=== PATIENT | female | born 1990 | race Caucasian/White ===

== ENCOUNTER 2022-10-04 08:14 | Emergency (ER) | payer OTHER, SELFPAY ==
[2022-10-04 08:23] VITALS: BP 133/74; PULSE 81; RESP 16; TEMP 36.7; O2SAT 98; BMI 22.5
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
[2022-10-04 10:08] LABS: Appearance Urine Clear; Color Urine Yellow; Glucose Urine UA Negative (Negative); Leukocyte Esterase Urine Negative (Negative); Nitrite Urine Negative (Negative); PH 7.5 (5.0-9.0); Urine Blood Negative (Negative); Urine Ketones Negative (Negative); Urine Protein Negative (Neg-Trace)
[2022-10-04] MEDS: cefTRIAXone sodium 500 MG, Lidocaine HCl 1 % MPF 1 ML IM (10:38)
[2022-10-04] MEDS: Acetaminophen 325 MG TABLET 650 MG PO (10:39)
[2022-10-04 11:17] LABS: UPreg QC Valid YES; Urine Pregnancy NEGATIVE (NEGATIVE)
[2022-10-04 12:26] LABS: CT PCR NOT DETECTED (Not Detect.); NG PCR NOT DETECTED (Not Detect.)
[2022-10-05 09:32] LABS: BV Int Neg Control Negative (Negative); BV Int Pos Control Positive (Positive)
== END 2022-10-04 11:33 | disposition home or self-care (01) ==
PROVIDERS: Physician Assistant; Emergency Provider Emergency Medicine
DX: N72 Inflammatory disease of cervix uteri (principal); R30.0 Dysuria; L29.9 Pruritus, unspecified; Z20.2 Contact with and (suspected) exposure to infections with a predominantly sexual mode of transmission; Z87.891 Personal history of nicotine dependence; Z79.899 Other long term (current) drug therapy
CPT/HCPCS: 0353U; 81003; 81025; 87480; 87510; 87660; 96372; 99283; 99284; J0696